=== PATIENT | male | born 1990 | race Caucasian/White ===

== ENCOUNTER 2017-06-01 00:19 | Emergency (ER) | payer MEDICAID ==
[~2017-06-01] VITALS: Ht 185.4 cm; Wt 127.5 kg
[2017-06-01 00:49] VITALS: Ht 185.4 cm; Wt 127.5 kg
[2017-06-01 03:06] VITALS: BP 146/79
== END 2017-06-01 03:06 | disposition home or self-care (01) ==
LOC: ED 00:19
DX: J20.9 Acute bronchitis, unspecified (principal); T16.2XXA Foreign body in left ear, initial encounter; X58.XXXA Exposure to other specified factors, initial encounter; Y93.89 Activity, other specified; Y92.89 Other specified places as the place of occurrence of the external cause; Y99.8 Other external cause status
CPT/HCPCS: J7620; Q0092